=== PATIENT | female | born 1970 | race Hispanic/Latino ===

== ENCOUNTER 2016-09-13 10:40 | Emergency (ER) | payer MEDICARE ==
[2016-09-13 10:52] VITALS: BMI 45.4
[2016-09-13 10:53] VITALS: RESP 20
[2016-09-13 11:26] LABS: HCG,QUALITATIVE URINE NEGATIVE (NEGATIVE)
[2016-09-13 11:45] LABS: SQUAMOUS EPITHIAL 12 /hpf (0-5); URINE BACTERIA RARE (<OCC); URINE BILIRUBIN NEGATIVE (NEGATIVE); URINE BLOOD 3+ (NEGATIVE); URINE CLARITY Clear (Clear); URINE COLOR Yellow (YELLOW); URINE GLUCOSE (UA) 3+ mg/dL (Normal); URINE LEUKOCYTE ESTERASE NEG Leu/uL (Negative); URINE NITRATE NEGATIVE (NEGATIVE); URINE PROTEIN 1+ mg/dL (NEGATIVE); URINE UROBILINOGEN NORMAL mg/dL (0.2-1.0)
--- NOTE | 2016-09-13 11:56 | C.PDOC ---
History Of Present Illness Patient is a 45 y/o female, whose past medical history includes diabetes, presents to the emergency department for evaluation of vaginal spotting for the last few days. Patient reports having similar spotting when she was few years ago. Patient is requesting test. Denies being seen by OBGYN. States her period normally lasts for 7 days. Otherwise, denies any nausea , vomiting, abdominal pain, vaginal pain or discharge, urinary symptoms. Time Seen by Provider: 09/13/16 11:04 Chief Complaint (Nursing): Female Genitourinary History Per: Patient History/Exam Limitations: no limitations Onset/Duration Of Symptoms: Gradual Current Symptoms Are (Timing): Still Present Severity: None Pain Scale Rating Of: 0 Associated Symptoms: denies: Fever, Chills, Nausea, Vomiting, Diarrhea, Loss Of Appetite, Back Pain, Chest Pain, Constipation, Urinary Symptoms Alleviating Factors: None Recent travel outside of the [place]: No Additional History Per: Patient Past Medical History Reviewed: Historical Data, Nursing Documentation, Vital Signs Vital Signs: Last Vital Signs Temp 98.2 F 09/13/16 12:16 Pulse 78 09/13/16 12:16 Resp 20 09/13/16 12:16 BP 128/84 09/13/16 12:16 Pulse Ox 97 09/13/16 12:16 - Medical History PMH: Asthma, Bronchitis, Diabetes, Gastritis, HTN Denies: Chronic Kidney Disease Surgical History: Endoscopy, Family History: States: Unknown Family Hx - Social History Hx Tobacco Use: Yes (heavy smoker) Hx Alcohol Use: No Hx Substance Use: No - Immunization History Hx Tetanus Toxoid Vaccination: Yes Hx Influenza Vaccination: Yes Hx Pneumococcal Vaccination: Yes Review Of Systems Except As Marked, All Systems Reviewed And Found Negative. Constitutional: Negative for: Fever, Chills Gastrointestinal: Negative for: Nausea, Vomiting, Abdominal Pain Genitourinary: Positive for: Other (vaginal spotting). Negative for: Dysuria, Frequency, Hematuria, Pelvic Pain Musculoskeletal: Negative for: Back Pain Physical Exam - Physical Exam Appears: Non-toxic, No Acute Distress Skin: Normal Color, Warm, Dry Head: Atraumatic, Normacephalic Eye(s): bilateral: Normal Inspection Neck: Normal ROM, Supple Chest: Symmetrical Cardiovascular: Rhythm Regular, No Murmur Respiratory: Normal Breath Sounds, No Rales, No Rhonchi, No Wheezing Gastrointestinal/Abdominal: Bowel Sounds (active), Soft, No Tenderness, No Distention, No Guarding Extremity: Bilateral: Atraumatic, Normal ROM Neurological/Psych: Oriented x3, Normal Speech Gait: Steady ED Course And Treatment O2 Sat by Pulse Oximetry: 98 (on RA) Pulse Ox Interpretation: Normal Progress Note: Urinalysis ordered and reviwed. UA was negative for preg or UTI. On reassessment, patient is resting comfortably in bed, no acute distress. No other complaints at this time. Patient is being discharged home with instructions to follow up with PMD or steamboat pilot Disposition - Disposition [facility] Disposition: HOME/ ROUTINE Disposition Time: 12:00 Condition: STABLE Additional Instructions: Your urine test was negative for follow up with your credit collector Instructions: Dysmenorrhea (ED) - POA Present On Arrival: None - Clinical Impression Clinical Impression: Dysfunctional uterine bleeding - PA / VP [employer] / Resident Statement MD/DO has reviewed & agrees with the documentation as recorded. - Scribe Statement The provider has reviewed the documentation as recorded by the Fidelina Ramirez All medical record entries made by the Fidelina were at my direction and personally dictated by me. I have reviewed the chart and agree that the record accurately reflects my personal performance of the history, physical exam, medical decision making, and the department course for this patient. I have also personally directed, reviewed, and agree with the discharge instructions and disposition.
[2016-09-13 12:17] VITALS: BP 128/84; PULSE 78; TEMP 98.2
[2016-09-13 13:21] VITALS: O2SAT 98
== END 2016-09-13 12:17 | disposition home or self-care (01) ==
LOC: C.ER 10:40
DX: N93.8 Other specified abnormal uterine and vaginal bleeding (principal)

== ENCOUNTER 2016-10-02 17:51 | Emergency (ER) | payer MEDICARE ==
[2016-10-02 17:51] VITALS: BMI 45.4
[2016-10-02 18:10] VITALS: RESP 18; TEMP 98.2
[2016-10-02] MEDS ORDERED: Tmp-Smz 800 mg-160 mg DS Tab PO STA (19:03)
[2016-10-02] MEDS ORDERED: Bacitracin 500 Units/gm Oint Foilpak UD TOP ONE (19:26)
[2016-10-02] MEDS ORDERED: Bacitracin 500 Units/gm Oint Foilpak UD ONE (19:28)
[2016-10-02] MEDS ORDERED: Tmp-Smz 800 mg-160 mg DS Tab ONE (19:29)
[2016-10-02 19:52] VITALS: BP 135/85; PULSE 75; O2SAT 97
--- NOTE | 2016-10-02 19:52 | C.PDOC ---
History Of Present Illness 10/02/2016 Ruddy Butler is a 45 year old female, who presents to the emergency department complaining of redness and pain that developed in her lower abdomen around her site over the last two days. Patient reports today she was heavy lifting which made her symptoms worse. Patient denies chest pain, shortness of breath, headache, fever, chills, cough, nausea, vomiting, diarrhea , changes in bowel habits, dysuria, hematuria, frequency, flank pain, or vaginal discharge. Time Seen by Provider: 10/02/16 18:26 Chief Complaint (Nursing): Abnormal Skin Integrity History Per: Patient History/Exam Limitations: no limitations Onset/Duration Of Symptoms: Days (2 days) Current Symptoms Are (Timing): Still Present Location Of Injury: Right: Abdomen (lower region pain), Left: Abdomen Quality Of Symptoms: Other (redness) Severity: None Past Medical History Reviewed: Historical Data, Nursing Documentation, Vital Signs Vital Signs: Last Vital Signs Temp 98.2 F 10/02/16 19:51 Pulse 75 10/02/16 19:51 Resp 18 10/02/16 19:51 BP 135/85 10/02/16 19:51 Pulse Ox 97 10/02/16 19:57 - Medical History PMH: Asthma, Bronchitis, Diabetes, Gastritis, HTN Denies: Chronic Kidney Disease Surgical History: Endoscopy, Family History: States: Unknown Family Hx - Social History Hx Tobacco Use: Yes (heavy smoker) Hx Alcohol Use: No Hx Substance Use: No - Immunization History Hx Tetanus Toxoid Vaccination: Yes Hx Influenza Vaccination: Yes Hx Pneumococcal Vaccination: Yes Review Of Systems Except As Marked, All Systems Reviewed And Found Negative. Constitutional: Negative for: Fever Cardiovascular: Negative for: Chest Pain Respiratory: Negative for: Shortness of Breath Gastrointestinal: Positive for: Abdominal Pain (lower abdominal pain and redness ) Genitourinary: Negative for: Dysuria Neurological: Negative for: Dizziness Physical Exam - Physical Exam Appears: Well, Non-toxic, No Acute Distress Skin: Normal Color, Warm, Dry Head: Atraumatic, Normacephalic Eye(s): bilateral: Normal Inspection, PERRL, EOMI Nose: Normal Throat: Normal Neck: Normal Cardiovascular: Rhythm Regular Respiratory: Normal Breath Sounds Gastrointestinal/Abdominal: Normal Exam, Tenderness (mild erythema and tenderness on lower abdomen along incision site.) Back: Normal Inspection Extremity: Normal ROM ED Course And Treatment O2 Sat by Pulse Oximetry: 97 (room air) Pulse Ox Interpretation: Normal Medical Decision Making Medical Decision Making: Plan: -- Bacitracin, Keflex, Motrin, and Bactrim Progress Notes: Indicative of cellulitis. Patient reports incision is from 6 years ago. There are no open wounds and will treat for cellulitis. Discussed results and plan with patient who expresses understanding. All questions answered and there is agreement with the plan to discharge home with instructions. Patient stable for discharge. Advised to return if symptoms persist or worsen. Disposition - Disposition Referrals: Hira Hackett MD [Staff Provider] - Disposition: HOME/ ROUTINE Disposition Time: 19:48 Condition: GOOD Additional Instructions: Follow up with the medical doctor within 1-2 days. Return if worsened. Prescriptions: Cephalexin [Keflex] 500 mg PO BID #14 capsule Nystatin 1 pow TOP TID #30 gm Sulfamethoxazole/Trimethoprim [Bactrim DS 800 mg-160 mg] 1 tab PO BID #14 tab Instructions: Cellulitis (ED) Forms: [facility] (Brazilian) - Clinical Impression Clinical Impression: Cellulitis - Scribe Statement The provider has reviewed the documentation as recorded by the Scribe 10/02/2016 Scribe Attestation: Elyssa Lau MD Scribe Attestation: All medical record entries made by the Scribe were at my direction and personally dictated by me. I have reviewed the chart and agree that the record accurately reflects my personal performance of the history, physical exam, medical decision making, and the department course for this patient. I have also personally directed, reviewed, and agree with the discharge instructions and disposition.
== END 2016-10-02 20:01 | disposition home or self-care (01) ==
LOC: C.ER 17:51
DX: L03.311 Cellulitis of abdominal wall (principal)

== ENCOUNTER 2017-11-09 11:41 | Emergency (ER) | payer MEDICARE ==
[2017-11-09 11:42] VITALS: BMI 45.4
--- NOTE | 2017-11-09 12:30 | C.PDOC ---
History Of Present Illness 47 year old female with PMHx of migraines presents to the ED complaining of headache for 3 days and abdominal pain since last night. Patient reports headache is intermittent and is associated with mild photophobia. She denies any visual changes, vomiting, diarrhea, dysuria, hematuria or any other symptoms. Last normal bowel movement was yesterday. Time Seen by Provider: 11/09/17 12:07 Chief Complaint (Nursing): Headache History Per: Patient History/Exam Limitations: no limitations Onset/Duration Of Symptoms: Days (1) Current Symptoms Are (Timing): Still Present Past Medical History Reviewed: Historical Data, Nursing Documentation, Vital Signs Vital Signs: Last Vital Signs Temp 98.8 F 11/09/17 15:02 Pulse 62 11/09/17 15:02 Resp 18 11/09/17 15:02 BP 121/62 11/09/17 15:02 Pulse Ox 98 11/09/17 17:41 - Medical History PMH: Asthma, Bronchitis, Diabetes, Gastritis, HTN Denies: Chronic Kidney Disease Surgical History: Endoscopy, Family History: States: No Known Family Hx - Social History Hx Tobacco Use: Yes (heavy smoker) Hx Alcohol Use: No Hx Substance Use: No - Immunization History Hx Tetanus Toxoid Vaccination: Yes Hx Influenza Vaccination: Yes Hx Pneumococcal Vaccination: Yes Review Of Systems Except As Marked, All Systems Reviewed And Found Negative. Constitutional: Negative for: Fever, Chills Respiratory: Negative for: Shortness of Breath Gastrointestinal: Positive for: Nausea, Abdominal Pain. Negative for: Vomiting , Diarrhea Genitourinary: Negative for: Dysuria, Hematuria Neurological: Positive for: Headache Physical Exam - Physical Exam Appears: Non-toxic, No Acute Distress Skin: Normal Color, Warm, Dry, No Rash Head: Atraumatic, Normacephalic, Other (No temporal artery tenderness. No sinus tenderness) Eye(s): bilateral: Normal Inspection, PERRL, EOMI Ear(s): Bilateral: Normal Nose: Normal Oral Mucosa: Moist Throat: No Erythema, No Exudate Neck: Normal ROM, Supple Chest: Symmetrical Cardiovascular: Rhythm Regular, No Friction Rub, No Murmur Respiratory: Normal Breath Sounds, No Rales, No Rhonchi, No Wheezing Gastrointestinal/Abdominal: Bowel Sounds (active), Soft, Tenderness (midly diffused tenderness ), Distention (Mildly distended ), No Guarding, No Rebound Back: Normal Inspection, No CVA Tenderness Extremity: Normal ROM, No Swelling Extremity: Bilateral: Atraumatic Neurological/Psych: Oriented x3, Normal Speech, Normal Motor Gait: Steady ED Course And Treatment - Laboratory Results Result Diagrams: 11/09/17 13:07 11/09/17 13:07 O2 Sat by Pulse Oximetry: 98 (RA) Pulse Ox Interpretation: Normal Medical Decision Making Medical Decision Making: Orders: - Labwork - Bloodwork - Benadryl 25mg IVP - Reglan 10mg IVP - Fluids - Toradol 30mg IVP - UA On re-exam, the patient reports improvement of symptoms. Lungs are CTA, heart is RRR, Abdomen is soft, non-tender and the patient is tolerating PO well. Pt is ambulatory in the ED with steady gait. Follow up with the medical doctor within 1-2 days. return if worsened. Disposition - Disposition Referrals: Hira Hackett MD [Staff Provider] - Disposition: HOME/ ROUTINE Disposition Time: 17:38 Condition: GOOD Additional Instructions: Follow up with the medical doctor within 1-2 days without fail. Return if worsened. Prescriptions: Acetaminophen/Butalbital/Caf [Fioricet] 1 tab PO TID PRN #20 tab PRN Reason: Headache Famotidine [Pepcid] 20 mg PO BID #20 tab Ibuprofen [Motrin] 1 tab PO TID PRN #30 tab PRN Reason: Pain Instructions: Migraine Headache (DC), Stomach Ache and Stomach Upset Forms: [facility] (Ghanaian) - Clinical Impression Clinical Impression: Migraine, Abdominal pain - PA / BELT CUTTER / Resident Statement MD/DO has reviewed & agrees with the documentation as recorded. - Scribe Statement The provider has reviewed the documentation as recorded by the Scribe Hansa Harvey All medical record entries made by the Scribe were at my direction and personally dictated by me. I have reviewed the chart and agree that the record accurately reflects my personal performance of the history, physical exam, medical decision making, and the department course for this patient. I have also personally directed, reviewed, and agree with the discharge instructions and disposition.
[2017-11-09] MEDS ORDERED: DiphenhydrAMINE 50 mg/ml Inj IVP STA (12:33)
[2017-11-09] MEDS ORDERED: Sodium Chloride 0.9% 1,000 ML IV ONE (12:35)
[2017-11-09 13:14] LABS: BASO # 0.1 K/uL (0.0-0.2); BASO % 1.3 % (0.0-2.0); EOS # 0.4 K/uL (0.0-0.7); EOS % 3.9 % (0.0-4.0); HEMOGLOBIN 14.5 g/dL (11.0-16.0); LYMPH # 1.8 K/uL (1.0-4.3); LYMPH % 17.7 % (20.0-40.0); MEAN CORPUSCULAR HEMOGLOBIN 32.1 pg (27.0-31.0); MEAN CORPUSCULAR HGB CONC 34.9 g/dL (33.0-37.0); MEAN PLATELET VOLUME 9.3 fL (7.2-11.7); MONO # 0.6 K/uL (0.0-0.8); MONO % 5.7 % (0.0-10.0); NEUT # 7.3 K/uL (1.8-7.0); NEUT % 71.4 % (50.0-75.0); NRBC % 0.1 % (0.0-2.0); RBC 4.51 Mil/uL (3.80-5.20); RED CELL DISTRIBUTION WIDTH 13.1 % (11.5-14.5); WHITE BLOOD COUNT 10.3 K/uL (4.8-10.8)
[2017-11-09 13:17] LABS: SQUAMOUS EPITHIAL < 1 /hpf (0-5); URINE BACTERIA RARE (<OCC); URINE BILIRUBIN NEGATIVE (NEGATIVE); URINE BLOOD NEGATIVE (NEGATIVE); URINE CLARITY Clear (Clear); URINE COLOR Yellow (YELLOW); URINE GLUCOSE (UA) NORMAL (Normal); URINE LEUKOCYTE ESTERASE NEG Leu/uL (Negative); URINE PROTEIN NEGATIVE (NEGATIVE); URINE UROBILINOGEN NORMAL mg/dL (0.2-1.0)
[2017-11-09 13:35] LABS: ALB/GLOB RATIO 1.3 (1.0-2.1); ALBUMIN 4.3 g/dL (3.5-5.0); ALT/SGPT 27 U/L (9-52); AST/SGOT 25 U/L (14-36); BLOOD UREA NITROGEN 9 mg/dL (7-17); CALCIUM 9.6 mg/dl (8.6-10.4); GFR NON-AFRICAN AMERICAN > 60; LIPASE 222 U/L (23-300)
[2017-11-09 14:27] VITALS: RESP 18
[2017-11-09] MEDS ORDERED: Sodium Chloride 0.9% 1,000 ML ONE (14:35)
[2017-11-09] MEDS ORDERED: DiphenhydrAMINE 50 mg/ml Inj ONE (14:36)
[2017-11-09 15:02] VITALS: BP 121/62; PULSE 62; TEMP 98.8
--- NOTE | 2017-11-09 16:46 | RAD ---
Date of service: 11/09/2017 PROCEDURE: Radiographs of the chest and abdomen (obstructive series) HISTORY: abd pain, nausea, COMPARISON: No prior. TECHNIQUE: AP radiograph of the chest, with upright and supine radiographs of the abdomen. FINDINGS: CHEST: Lungs: Clear. Cardiovascular: Normal size heart. No pulmonary vascular congestion. Pleura: No pleural fluid. No pneumothorax. Other findings: None. ABDOMEN AND PELVIS: Bowel: Unremarkable bowel gas pattern. No evidence of mechanical obstruction. Free air: None. Bones lumbar spine osteoarthrosis Bilateral SI joint sclerotic arthrosis. Other findings: None. IMPRESSION: No pulmonary infiltrate. . No evidence of mechanical bowel obstruction. Other findings as above.
--- NOTE | 2017-11-09 17:28 | US ---
Date of service: 11/09/2017 HISTORY: RUQ abd pain COMPARISON: None available TECHNIQUE: Sonographic evaluation of the right upper quadrant of the abdomen. FINDINGS: LIVER: Measures 21.6 cm in length. Echogenic liver may be seen in setting of hepatic parenchymal disease or fatty infiltration. No focal hepatic mass identified. The main portal vein appears patent with normal directional flow. No intrahepatic bile duct dilatation. GALLBLADDER: No gallstones. No gallbladder wall thickening or pericholecystic edema. Negative sonographic Engel's sign as assessed by the poultry packer. COMMON BILE DUCT: Measures 4 mm. PANCREAS: Not well-visualized. RIGHT KIDNEY: Measures 11.1 x 4.3 x 5.4 cm. No obstructing calculus or hydronephrosis identified. AORTA: Limited visualization appears grossly unremarkable. IVC: Limited visualization appears grossly unremarkable. OTHER FINDINGS: None . IMPRESSION: Hepatomegaly. Echogenic liver may be seen in setting of hepatic parenchymal disease or fatty infiltration.
[2017-11-09] MEDS ORDERED: Apap-Butalbital-Caffeine 325-50-40mg Tab PO STA (17:37)
[2017-11-09 17:41] VITALS: O2SAT 98
[2017-11-09] MEDS ORDERED: Apap-Butalbital-Caffeine 325-50-40mg Tab ONE (17:59)
== END 2017-11-09 18:01 | disposition home or self-care (01) ==
LOC: C.ER 11:41
DX: G43.909 Migraine, unspecified, not intractable, without status migrainosus (principal); R10.9 Unspecified abdominal pain; E11.9 Type 2 diabetes mellitus without complications; I10 Essential (primary) hypertension; F17.200 Nicotine dependence, unspecified, uncomplicated
CPT/HCPCS: 74022; 76705; 80053; 81001; 83690; 84703; 85025; 96374; 96375; 99285; J1200; J1885; J2765; J7030

== ENCOUNTER 2017-12-13 11:38 | Emergency (ER) | payer MEDICARE ==
[2017-12-13 11:39] VITALS: BMI 45.4
[2017-12-13 11:53] VITALS: O2SAT 99
[2017-12-13 13:25] LABS: BASO % 0.5 % (0.0-2.0); EOS # 0.4 K/uL (0.0-0.7); EOS % 5.2 % (0.0-4.0); HEMOGLOBIN 14.6 g/dL (11.0-16.0); LYMPH # 2.2 K/uL (1.0-4.3); LYMPH % 26.3 % (20.0-40.0); MEAN CELL VOLUME 92.2 fL (81.0-99.0); MEAN CORPUSCULAR HEMOGLOBIN 31.3 pg (27.0-31.0); MEAN CORPUSCULAR HGB CONC 33.9 g/dL (33.0-37.0); MEAN PLATELET VOLUME 8.9 fL (7.2-11.7); MONO # 0.6 K/uL (0.0-0.8); MONO % 6.7 % (0.0-10.0); NEUT # 5.2 K/uL (1.8-7.0); NEUT % 61.3 % (50.0-75.0); RBC 4.67 Mil/uL (3.80-5.20); RED CELL DISTRIBUTION WIDTH 13.1 % (11.5-14.5); WHITE BLOOD COUNT 8.5 K/uL (4.8-10.8)
[2017-12-13 13:28] LABS: ALB/GLOB RATIO 1.2 (1.0-2.1); ALBUMIN 4.1 g/dL (3.5-5.0); ALT/SGPT 24 U/L (9-52); AST/SGOT 22 U/L (14-36); BLOOD UREA NITROGEN 10 mg/dL (7-17); CALCIUM 9.5 mg/dl (8.6-10.4); GFR NON-AFRICAN AMERICAN > 60; LIPASE 327 U/L (23-300)
--- NOTE | 2017-12-13 13:48 | C.PDOC ---
History Of Present Illness Patient reports several day history of abdominal pain, states that "it is hard as a rock and keeps growing". Reports that LMP was in September and one week ago she had a positive home test. Denies any other symptoms such as fever, nausea, vomiting, vaginal bleeding/discharge. Time Seen by Provider: 12/13/17 12:12 Chief Complaint (Nursing): Abdominal Pain Past Medical History Vital Signs: Last Vital Signs Temp 98.6 F 12/13/17 11:49 Pulse 75 12/13/17 11:49 Resp 18 12/13/17 11:49 BP 169/80 H 12/13/17 11:49 Pulse Ox 99 12/13/17 11:49 - Medical History PMH: Asthma, Bronchitis, Diabetes, Gastritis, HTN Denies: Chronic Kidney Disease Surgical History: Endoscopy, Family History: States: Unknown Family Hx - Social History Hx Tobacco Use: Yes (heavy smoker) Hx Alcohol Use: No Hx Substance Use: No - Immunization History Hx Tetanus Toxoid Vaccination: No Hx Influenza Vaccination: No Hx Pneumococcal Vaccination: No Review Of Systems Except As Marked, All Systems Reviewed And Found Negative. Constitutional: Negative for: Fever, Chills Cardiovascular: Negative for: Chest Pain Respiratory: Negative for: Cough, Shortness of Breath, SOB with Excertion Gastrointestinal: Positive for: Abdominal Pain. Negative for: Nausea, Vomiting, Diarrhea Neurological: Negative for: Weakness, Numbness Physical Exam - Physical Exam Appears: Well, Non-toxic, No Acute Distress Skin: Normal Color, Warm, Dry Head: Atraumatic Cardiovascular: Rhythm Regular Respiratory: Normal Breath Sounds Gastrointestinal/Abdominal: Normal Exam, Soft, No Tenderness, No Mass, No Distention, No Guarding, No Rebound Neurological/Psych: Oriented x3, Normal Speech ED Course And Treatment - Laboratory Results Result Diagrams: 12/13/17 13:12 12/13/17 13:12 Urine POC: Negative O2 Sat by Pulse Oximetry: 99 Medical Decision Making Medical Decision Making: UPT done and was negative. Confirmatory serum beta quantitative done and was also negative. Labs unremarkable except for slightly elevated lipase. Patient advised to follow up with PMD for further evaluation. 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 Disposition - Disposition Disposition: HOME/ ROUTINE Disposition Time: 13:48 Condition: GOOD Additional Instructions: IZABELA ANGELES, thank you for letting us take care of you today. Your provider was Shahana Chou MD and you were treated for /ABD PAIN. The emergency medical care you received today was directed at your acute symptoms. If you were prescribed any medication, please fill it and take as directed. It may take several days for your symptoms to resolve. Return to the Emergency Department if your symptoms worsen, do not improve, or if you have any other problems. Please contact your doctor or call one of the physicians/clinics you have been referred to that are listed on the Patient Visit Information form that is included in your discharge packet. Bring any paperwork you were given at discharge with you along with any medications you are taking to your follow up visit. Our treatment cannot replace ongoing medical care by a primary care provider outside of the emergency department. Thank you for allowing the [facility] team to be part of your care today. If you had an X-Ray or CT scan: A Radiologist will review the ED reading if any change in treatment is needed we will contact you. If you had a blood, urine, or wound culture: It will take several days for the results, if any change in treatment is needed we will contact you. If you had an STI test: It will take 48 hours for the results. Please call after 1 week if you have not heard back. Instructions: Acute Abdomen (Belly Pain), Adult (DC) Forms: [employer] (Chilean) - Clinical Impression Clinical Impression: Abdominal pain
[2017-12-13 13:58] VITALS: BP 149/78; PULSE 74; RESP 16; TEMP 98.5
== END 2017-12-13 13:57 | disposition home or self-care (01) ==
LOC: C.ER 11:38
DX: R10.9 Unspecified abdominal pain (principal)

== ENCOUNTER 2018-04-09 09:36 | Inpatient (IN) | payer MEDICARE ==
[2018-04-09 09:48] VITALS: BMI 46.0
[2018-04-09] MEDS ORDERED: Piperacillin/Tazobact 3.375 GM in Sodium Chloride 100 ML IVPB STA (10:49)
[2018-04-09] MEDS ORDERED: Vancomycin 1 GM 1 GM/250 ML BAG IVPB STA (10:50)
[2018-04-09 10:56] LABS: HCG,QUALITATIVE URINE NEGATIVE (NEGATIVE)
[2018-04-09 11:16] LABS: SQUAMOUS EPITHIAL 8 /hpf (0-5); URINE BACTERIA RARE (<OCC); URINE BILIRUBIN NEGATIVE (NEGATIVE); URINE BLOOD NEGATIVE (NEGATIVE); URINE CLARITY Hazy (Clear); URINE COLOR Yellow (YELLOW); URINE GLUCOSE (UA) NORMAL (Normal); URINE LEUKOCYTE ESTERASE NEG Leu/uL (Negative); URINE PROTEIN NEGATIVE (NEGATIVE); URINE UROBILINOGEN NORMAL mg/dL (0.2-1.0)
[2018-04-09] MEDS ORDERED: Piperacillin/Tazobact 3.375 gm 100 ML IVPB ONE (11:16)
[2018-04-09] MEDS ORDERED: Vancomycin 1 GM 1 GM/250 ML BAG IVPB ONE (11:16)
[2018-04-09 11:31] LABS: BASO % 0.4 % (0.0-2.0); EOS # 0.3 K/uL (0.0-0.7); EOS % 2.2 % (0.0-4.0); HEMOGLOBIN 14.1 g/dL (11.0-16.0); LYMPH # 1.2 K/uL (1.0-4.3); LYMPH % 10.4 % (20.0-40.0); MEAN CELL VOLUME 92.6 fL (81.0-99.0); MEAN CORPUSCULAR HEMOGLOBIN 31.9 pg (27.0-31.0); MEAN CORPUSCULAR HGB CONC 34.4 g/dL (33.0-37.0); MONO # 0.6 K/uL (0.0-0.8); MONO % 5.3 % (0.0-10.0); NEUT # 9.6 K/uL (1.8-7.0); NEUT % 81.7 % (50.0-75.0); RBC 4.44 Mil/uL (3.80-5.20); RED CELL DISTRIBUTION WIDTH 13.2 % (11.5-14.5); WHITE BLOOD COUNT 11.8 K/uL (4.8-10.8)
[2018-04-09 11:32] LABS: INR 1.2; PROTHROMBIN TIME 12.9 SECONDS (9.7-12.2)
[2018-04-09 11:38] LABS: ALB/GLOB RATIO 1.2 (1.0-2.1); ALBUMIN 4.2 g/dL (3.5-5.0); AST/SGOT 17 U/L (14-36); BLOOD UREA NITROGEN 11 mg/dL (7-17); CALCIUM 9.2 mg/dl (8.6-10.4); GFR NON-AFRICAN AMERICAN > 60
--- NOTE | 2018-04-09 11:46 | RAD ---
HISTORY: pre op COMPARISON: Chest x-ray portion of obstructive series performed 11/09/17 TECHNIQUE: Chest PA and lateral FINDINGS: Examination limited by habitus. LUNGS: No focal consolidation. Please note that chest x-ray has limited sensitivity for the detection of pulmonary masses. PLEURA: No significant pleural effusion identified. No definite pneumothorax . CARDIOVASCULAR: The cardiomediastinal silhouette appears within normal limits of size. No atherosclerotic calcification present. OSSEOUS STRUCTURES: No acute osseous abnormality identified. VISUALIZED UPPER ABDOMEN: Unremarkable. OTHER FINDINGS: None. IMPRESSION: No focal consolidation.
[2018-04-09 11:50] LABS: ALT/SGPT < 6 U/L (9-52)
--- NOTE | 2018-04-09 12:12 | C.PDOC ---
History Of Present Illness 47 year old female resents to ED with complaint of cellulitis and abscess on the right breast for the last week, taking po Augmentin with no improvement. . Patient is obese and has diabetes and hypertension. Patient denies any numbness or weakness. Time Seen by Provider: 04/09/18 10:31 Chief Complaint (Nursing): Abnormal Skin Integrity History Per: Patient History/Exam Limitations: no limitations Onset/Duration Of Symptoms: Hrs Current Symptoms Are (Timing): Still Present Location Of Injury: Right: Chest (cellulitis and abscess on the right breast) Past Medical History Reviewed: Historical Data, Nursing Documentation, Vital Signs Vital Signs: Last Vital Signs Temp 98.3 F 04/09/18 09:48 Pulse 95 H 04/09/18 09:48 Resp 18 04/09/18 09:48 BP 139/97 H 04/09/18 09:48 Pulse Ox 97 04/09/18 09:48 - Medical History PMH: Asthma, Bronchitis, Diabetes, Gastritis Denies: HTN (pt denies), Chronic Kidney Disease Surgical History: Endoscopy, Family History: States: Unknown Family Hx - Social History Hx Tobacco Use: Yes (heavy smoker) Hx Alcohol Use: No Hx Substance Use: No - Immunization History Hx Tetanus Toxoid Vaccination: No Hx Influenza Vaccination: No Hx Pneumococcal Vaccination: No Review Of Systems Constitutional: Negative for: Fever, Chills, Weakness Cardiovascular: Negative for: Chest Pain, Palpitations Gastrointestinal: Negative for: Nausea, Vomiting Skin: Positive for: Other (cellulitis and abcess on the right breast) Neurological: Negative for: Weakness, Numbness, Dizziness Physical Exam - Physical Exam Appears: Well, Non-toxic, No Acute Distress, Other (obese) Skin: Other (right breast firm, hot on distal surface, black scabs with fluctuance underneath the distal aspect of the breast below the nipple, no drainage) Head: Atraumatic, Normacephalic Neck: Normal ROM, Supple Chest: Symmetrical, No Deformity, Other (left breast appears normal, right breast enlarged. erythematous and hot. mutiple blackened scabbed areas from 3 oclock to 9 oclock position with fluctuance, no active discharge. ) Cardiovascular: Rhythm Regular, No Murmur Respiratory: No Decreased Breath Sounds, No Accessory Muscle Use, No Rales, No Rhonchi, No Wheezing Gastrointestinal/Abdominal: Bowel Sounds, Soft, No Tenderness, No Distention, No Guarding, No Rebound Extremity: Capillary Refill (<2 seconds) Extremity: Bilateral: Atraumatic, Normal Color And Temperature Pulses: Left Radial: Normal, Right Radial: Normal Neurological/Psych: Oriented x3, Normal Speech, Normal Cognition ED Course And Treatment - Laboratory Results Result Diagrams: 04/09/18 11:16 04/09/18 11:16 Lab Results: PT 12.9 SECONDS (9.7-12.2) H 04/09/18 11:16 INR 1.2 04/09/18 11:16 APTT 30 SECONDS (21-34) 04/09/18 11:16 Total Bilirubin 0.3 mg/dL (0.2-1.3) 04/09/18 11:16 AST 17 U/L (14-36) 04/09/18 11:16 ALT < 6 U/L (9-52) L D 04/09/18 11:16 Alkaline Phosphatase 93 U/L (38-126) 04/09/18 11:16 Total Protein 7.5 g/dL (6.3-8.3) 04/09/18 11:16 Albumin 4.2 g/dL (3.5-5.0) 04/09/18 11:16 Globulin 3.3 gm/dL (2.2-3.9) 04/09/18 11:16 Albumin/Globulin Ratio 1.2 (1.0-2.1) 04/09/18 11:16 Urine Color Yellow (YELLOW) 04/09/18 10:47 Urine Clarity Hazy (Clear) 04/09/18 10:47 Urine pH 5.0 (5.0-8.0) 04/09/18 10:47 Ur Specific [place] 1.015 (1.003-1.030) 04/09/18 10:47 Urine Protein Negative mg/dL (NEGATIVE) 04/09/18 10:47 Urine Glucose (UA) Normal mg/dL (Normal) 04/09/18 10:47 Urine Ketones Negative mg/dL (NEGATIVE) 04/09/18 10:47 Urine Blood Negative (NEGATIVE) 04/09/18 10:47 Urine Nitrate Negative (NEGATIVE) 04/09/18 10:47 Urine Bilirubin Negative (NEGATIVE) 04/09/18 10:47 Urine Urobilinogen Normal mg/dL (0.2-1.0) 04/09/18 10:47 Ur Leukocyte Esterase Neg Vaishnavi/uL (Negative) 04/09/18 10:47 Urine WBC (Auto) 1 /hpf (0-5) 04/09/18 10:47 Urine RBC (Auto) 1 /hpf (0-3) 04/09/18 10:47 Ur Squamous Epith Cells 8 /hpf (0-5) H 04/09/18 10:47 Urine Bacteria Rare (<OCC) 04/09/18 10:47 Urine HCG, Qual Negative (NEGATIVE) 04/09/18 10:47 Urine HCG, Qual Negative (NEGATIVE) 04/09/18 10:47 ECG: Interpreted By Me, Viewed By Me ECG Rhythm: Sinus Rhythm ECG Interpretation: Abnormal Interpretation Of ECG: left axis deviation. sinus rhythm normal. Abnormal ECG O2 Sat by Pulse Oximetry: 97 (RA) - Other Rad CXR X-Ray: Interpreted by Me, Viewed By Me Interpretation: Accession No. : [id number]. Patient Name / ID : BRIDGETTE GURROLA / [id number]. Exam Date : 04/09/2018 10:55:16 ( Approved ). Study Comment : Sex / Age : F / 47Y. Creator : Dorys Casas MD. Dictator : Dorys Casas MD. [employer] Developer : Raw Sampler : Dorys Casas MD. Approver2 : Report Date : 04/09/2018 11:42:47. My Comment : . HISTORY: pre op. COMPARISON: Chest x-ray portion of obstructive series performed 11/09/17. TECHNIQUE: Chest PA and lateral. FINDINGS: Examination limited by habitus. LUNGS: No focal consolidation. Please note that chest x-ray has limited sensitivity for the detection of pulmonary masses. PLEURA: No significant pleural effusion identified. No definite pneumothorax . CARDIOVASCULAR: The cardiomediastinal silhouette appears within normal limits of size. No atherosclerotic calcification present. OSSEOUS STRUCTURES: No acute osseous abnormality identified. VISUALIZED UPPER ABDOMEN: Unremarkable. OTHER FINDINGS: None. IMPRESSION: No focal consolidation. Medical Decision Making Medical Decision Making: pt with breast cellulitis and abscess for or Plan: Labs ordered with urine culture and blood culture for patient. EKG and CXR orderd for patient. NaCl IV, Vancomycin IVPB, and Zosyn IVPB given to patient. Disposition Discussed With Dr.: Jabari Barros Doctor Will See Patient In The: Hospital - Disposition Disposition: HOSPITALIZED Disposition Time: 12:11 Condition: STABLE - Clinical Impression Clinical Impression: Cellulitis of right breast, Abscess of breast, right - PA / MACHINE SETTER SUPERVISOR / Resident Statement MD/DO has reviewed & agrees with the documentation as recorded. (Celi Haney) - Scribe Statement The provider has reviewed the documentation as recorded by the Scribe (Celi Haney) All medical record entries made by the Scribe were at my direction and personally dictated by me. I have reviewed the chart and agree that the record accurately reflects my personal performance of the history, physical exam, medical decision making, and the department course for this patient. I have also personally directed, reviewed, and agree with the discharge instructions and disposition.
[2018-04-09] MEDS ORDERED: Sodium Chloride 0.9% 250 ML IV ONE (12:33)
[2018-04-09] MEDS: Sodium Chloride 0.9% 1,000 ML IV SCH (12:34)
[2018-04-09] MEDS ORDERED: Midazolam 2 MG/2 ML VIAL ONE (13:31)
[2018-04-09] MEDS ORDERED: Propofol 10 mg/ml Inj (20 ML) ONE (13:32)
[2018-04-09] MEDS ORDERED: HYDROmorphone 0.5 mg/0.5 ml ISec IVP PRN (14:05)
[2018-04-09] MEDS: Dextrose 5%/0.45% NS 1,000 ML IV SCH (17:32)
[2018-04-09] MEDS: Oxycodone/Acetaminophen 5/325 mg Tab PO PRN (20:16)
[2018-04-09] MEDS: Enoxaparin 30 mg Syringe SC SCH (21:43)
--- NOTE | 2018-04-10 00:25 | OP ---
PROCEDURE DATE: 04/09/2018 PREOPERATIVE DIAGNOSIS: Necrotizing soft tissue infection of right breast. POSTOPERATIVE DIAGNOSIS: Necrotizing soft tissue infection of right breast. PROCEDURE PERFORMED: Incision and drainage, radical debridement, necrotizing soft tissue infection of the right breast. SURGEON: Jabari Barros MD ANESTHESIA: General. ESTIMATED BLOOD LOSS: 15 mL. POSTOPERATIVE CONDITION: Stable. INDICATIONS FOR SURGERY: This is a 47-year-old female, seen in my office three days ago with a severe right breast abscess. Recommendation was made to admit the patient to the hospital and treat her on an urgent basis; however, she wanted to wait the weekend until Monday to do this. Instead, she was admitted today, found to have a necrotizing soft tissue infection in her breast. She is taken to the operating room now for debridement and drainage. GROSS FINDINGS: There was gangrenous skin overlying the anterior portion of the breast in the upper inner quadrant, also at the whole inferior quadrant. This was debrided and underlying it was a large abscess cavity containing about 50 mL of pus. DESCRIPTION OF PROCEDURE: The patient was taken to the operating room, general anesthesia was administered, and the right breast was prepped and draped. The overlying eschars were excised using an 11 blade. The underlying pus was drained and cultured. The necrotic tissue within the soft tissue space was radically debrided. Bleeding was controlled using a Bovie. The chest wall blood vessel was repaired. The wound was irrigated with copious amounts of saline solution. A partial flap closure was performed at the periphery. The central portion of the wound was packed open with saline gauze. The patient tolerated the procedure well and returned to recovery room in stable condition. Jabari Barros MD
[2018-04-10] MEDS: Enoxaparin 30 mg Syringe SC SCH ×2 (01:00→21:41)
[2018-04-10 07:25] LABS: BASO % 0.4 % (0.0-2.0); EOS # 0.2 K/uL (0.0-0.7); EOS % 2.8 % (0.0-4.0); HEMOGLOBIN 12.9 g/dL (11.0-16.0); LYMPH # 1.8 K/uL (1.0-4.3); LYMPH % 20.4 % (20.0-40.0); MEAN CELL VOLUME 92.7 fL (81.0-99.0); MEAN CORPUSCULAR HEMOGLOBIN 31.6 pg (27.0-31.0); MEAN CORPUSCULAR HGB CONC 34.1 g/dL (33.0-37.0); MEAN PLATELET VOLUME 8.8 fL (7.2-11.7); MONO # 0.5 K/uL (0.0-0.8); MONO % 5.9 % (0.0-10.0); NEUT # 6.1 K/uL (1.8-7.0); NEUT % 70.5 % (50.0-75.0); NRBC % 0.1 % (0.0-2.0); RBC 4.08 Mil/uL (3.80-5.20); RED CELL DISTRIBUTION WIDTH 13.1 % (11.5-14.5); WHITE BLOOD COUNT 8.7 K/uL (4.8-10.8)
[2018-04-10 07:33] LABS: BLOOD UREA NITROGEN 14 mg/dL (7-17); CALCIUM 8.6 mg/dl (8.6-10.4); GFR NON-AFRICAN AMERICAN > 60
[2018-04-10] MEDS: Sodium Chloride 0.9% 1,000 ML IV SCH ×2 (08:34→21:34)
[2018-04-10] MEDS ORDERED: Vancomycin 1 gm/D5W 200 ml 1 GM/200 ML BAG IVPB ONE (14:12)
[2018-04-10] MEDS ORDERED: Midazolam 2 MG/2 ML VIAL ONE (14:34)
[2018-04-10] MEDS ORDERED: Propofol 10 mg/ml Inj (20 ML) ONE ×3 (14:34→14:57)
[2018-04-10] MEDS: Vancomycin 1 gm/NS 200 ml 1 GM/200 ML BAG IVPB SCH (16:21)
[2018-04-10] MEDS: Piperacillin/Tazobact 3.375 GM in Sodium Chloride 100 ML IVPB SCH ×2 (16:30→21:34)
--- NOTE | 2018-04-10 17:26 | CP.PCM.CON ---
History of Present Illness - History of Present Illness History of Present Illness: 47 year old female resents to ED with complaint of cellulitis and abscess on the right breast for the last week Failed out pt rx sees dr chandrika MURILLO consulted for this - Medical History PMH: Asthma, Bronchitis, Diabetes, Gastritis Denies: HTN (pt denies), Chronic Kidney Disease Surgical History: Endoscopy, Review of Systems - Review of Systems All systems: reviewed and no additional remarkable complaints except - Constitutional Constitutional: As Per HPI - EENT Eyes: absent: As Per HPI, Blind Spots, Blurred Vision, Change in Vision, Decreased Night Vision, Diplopia, Discharge, Dry Eye, Exophthalmos, Floaters, Irritation, Itchy Eyes, Loss of Peripheral Vision, Pain, Photophobia, Requires Corrective Lenses, Sees Flashes, Spots in Vision, Tunnel Vision, Other Visual Disturbances, Loss of Vision, Other Ears: absent: As Per HPI, Decreased Hearing, Ear Discharge, Ear Pain, Tinnitus, Abnormal Hearing, Disequilibrium, Dizziness, Other Nose/Mouth/Throat: absent: As Per HPI, Epistaxis, Nasal Congestion, Nasal Discharge, Nasal Obstruction, Nasal Trauma, Nose Pain, Post Nasal Drip, Sinus Pain, Sinus Pressure, Bleeding Gums, Change in Voice, Dental Pain, Dry Mouth, Dysphagia, Halitosis, Hoarsness, Lip Swelling, Mouth Lesions, Mouth Pain, Odynophagia, Sore Throat, Throat Swelling, Tongue Swelling, Facial Pain, Neck Pain, Neck Mass, Other - Breasts Breasts: As Per HPI - Cardiovascular Cardiovascular: absent: As Per HPI, Acrocyanosis, Chest Pain, Chest Pain at Rest, Chest Pain with Activity, Claudication, Diaphoresis, Dyspnea, Dyspnea on Exertion, Edema, Irregular Heart Rhythm, Pain Radiating to Arm/Neck/Jaw, Leg Edema, Leg Ulcers, Lightheadedness, Orthopnea, Palpitations, Paroxysmal Nocturnal Dyspnea, Pedal Edema, Radiating Pain, Rapid Heart Rate, Slow Heart Rate, Syncope, Other - Respiratory Respiratory: Cough. absent: Hemoptysis - Gastrointestinal Gastrointestinal: absent: As Per HPI, Abdominal Pain, Belching, Bloating, Change in Bowel Habits, Change in Stool Character, Coffee Ground Emesis, Constipation, Cramping, Diarrhea, Dyspepsia, Dysphagia, Early Satiety, Excessive Flatus, Fecal Incontinence, Heartburn, Hematemesis, Hematochezia, Loose Stools, Melena, [place] sea, Odynophagia, Temesmus, Vomiting, Other - Genitourinary Genitourinary: absent: As Per HPI, Change in Urinary Stream, Difficulty Urinating, Dysuria, Flank Pain, Hematuria, Pyuria, Nocturia, Urinary Incontinence, Urinary Frequency, Urinary Hesitance, Urinary Urgency, Voiding Freq/Small Amts, Freq UTI, Hx Renal/Bladder Calculi, Hx /Renal Surgery, Bladder Distension, Other - Reproductive: Female Reproductive:Female: absent: As Per HPI, Amenorrhea, Amenorrhea/ Control, Currently Menstual, Cycle <21 Days, Cycle >35 Days, Cycle Variable, Menses 1-7 Days, Menses >/= 8 Days, Menses Variable, Cycle > 4 Weeks Between, No Menses for 6 Months, Heavy Menses, Light Menses, Normal Menses, Spotting Between Cycles, S/P Hysterectomy, Menopausal, Post Menopausal, Premenarche, Abnormal Vaginal Bleeding, Dysmenorrhea, Dyspareunia, Genital Lesions, Genital Pruritis, Pelvic Pain, Prolapse Symptoms, Sexual Dysfunction, Vaginal Discharge, Vaginal Dryness, Vaginal Odor, Vaginal Pruritis, Other - Menstruation Menstruation: absent: As Per HPI, Amenorrhea, Amenorrhea/ Control, Cur rently Menstual, Cycle <21 Days, Cycle >35 Days, Cycle Variable, Menses 1-7 Days, Menses >/= 8 Days, Menses Variable, Cycle > 4 Weeks Between, No Menses for 6 Months, Heavy Menses, Light Menses, Normal Menses, Spotting Between Cycles, S/P Hysterectomy, Menopausal, Post Menopausal, Premenarche, Abnormal Vaginal Bleeding, Dysmenorrhea, Other - Musculoskeletal Musculoskeletal: absent: As Per HPI, Abnormal Gait, Arthralgias, Atrophy, Back Pain, Deformity, Joint Swelling, Limited Range of Motion, Loss of Height, Muscle Cramps, Muscle Weakness, Myalgias, Neck Pain, Numbness, Radiating Pain into Limb, Stiffness, Tingling, Other - Integumentary Integumentary: As Per HPI - Neurological Neurological: absent: As Per HPI, Abnormal Gait, Abnormal Hearing, Abnormal Movements, Abnormal Speech, Behavioral Changes, Burning Sensations, Confusion, Convulsions, Disequilibrium, Dizziness, Numbness, Focal Weakness, Frequent Falls, Headaches, Lack of Coordination, Loss of Vision, Memory Loss, Paresthesias, Radicular Pain, Restless Legs, Sensory Deficit, Syncope, Tingling, Tremor, Vertigo, Weakness, Other Visual Disturbances, Other - Psychiatric Psychiatric: absent: As Per HPI, Abnormal Sleep Pattern, Anhedonia, Anxiety, Auditory Hallucinations, Behavioral Changes, Change in Appetite, Change in Libido, Confusion, Depression, Difficulty Concentrating, Hallucinations, Homicidal Ideation, Hopelessness, Irritability, Memory Loss, Mood Swings, Panic Attacks, Paranoia, Suicidal Ideation, Visual Hallucinations, Tactile Hallucinations, Other - Endocrine Endocrine: absent: As Per HPI, Change in Body Appearance, Change in Libido, Cold Intolorance, Deepening of Voice, Excessive Sweating, Fatigue, Flushing, Heat Intolorance, Increase in Ring/Shoe/Hat Size, Palpitations, Polydipsia, Polyphagia, Polyuria, Other Past Patient History - Infectious Disease Hx of Infectious Diseases: None - Past Medical History & Family History Past Medical History?: Yes - Past Social History Smoking Status: Light Smoker < 10 Cigarettes Daily - CARDIAC Hx Hypertension: No (pt denies) - PULMONARY Hx Asthma: Yes Hx Bronchitis: Yes - NEUROLOGICAL Hx Neurological Disorder: No - HEENT Hx HEENT Problems: No - RENAL Hx Chronic Kidney Disease: No - ENDOCRINE/METABOLIC Hx Endocrine Disorders: Yes Hx Diabetes Mellitus Type 2: Yes (diet controlled, no meds as per patient) - HEMATOLOGICAL/ONCOLOGICAL Hx Blood Disorders: No - INTEGUMENTARY Hx Dermatological Problems: No - MUSCULOSKELETAL/RHEUMATOLOGICAL Hx Musculoskeletal Disorders: No Hx Falls: No - GASTROINTESTINAL Hx Gastritis: Yes - GENITOURINARY/GYNECOLOGICAL Hx Genitourinary Disorders: No - PSYCHIATRIC Hx Substance Use: No - SURGICAL HISTORY Hx Section: Yes (x3) - ANESTHESIA Hx Anesthesia: Yes Hx Anesthesia Reactions: No Hx Malignant Hyperthermia: No Meds Allergies/Adverse Reactions: Allergies Allergy/AdvReac Type Severity Reaction Status Date / Time strawberry Allergy hives Verified 04/09/18 09:47 - Medications Medications: Current Medications Docusate Sodium (Colace) 100 mg PO BID [facility] Last Admin: 04/10/18 10:00 Dose: Not Given Enoxaparin Sodium (Lovenox) 30 mg SC 1000,2200 [facility] Last Admin: 04/10/18 01:00 Dose: Not Given Sodium Chloride (Sodium Chloride 0.9%) 1,000 mls @ 100 mls/hr IV .Q10H [facility] Last Admin: 04/10/18 08:34 Dose: Not Given Dextrose/Sodium Chloride (Dextrose 5%/0.45% Ns 1000 Ml) 1,000 mls @ 60 mls/hr IV .[id number] [facility] Last Admin: 04/09/18 17:32 Dose: 60 mls/hr Vancomycin/Sodium Chloride (Vancomycin 1 Gm/Ns 200 Ml) 1 gm in 200 mls @ 133 mls/hr IVPB Q12H [facility]; Protocol Stop: 04/15/18 17:01 Last Admin: 04/10/18 16:21 Dose: Not Given Piperacillin Sod/Tazobactam (Sod 3.375 gm/ Sodium Chloride) 100 mls @ 200 mls/hr IVPB Q6H [facility]; Protocol Last Admin: 04/10/18 16:30 Dose: 200 mls/hr Ketorolac Tromethamine (Toradol) 30 mg IVP Q6 PRN PRN Reason: pain 8-10 Stop: 04/14/18 14:04 Last Admin: 04/10/18 16:26 Dose: 30 mg Oxycodone/Acetaminophen (Percocet 5/325 Mg Tab) 2 tab PO Q4H PRN PRN Reason: pain Stop: 04/12/18 14:04 Last Admin: 04/09/18 20:16 Dose: 2 tab Pantoprazole Sodium (Protonix Inj) 40 mg IVP DAILY [facility] Last Admin: 04/10/18 10:00 Dose: Not Given Physical Exam - Constitutional Appears: Non-toxic, Chronically Ill - Head Exam Head Exam: NORMOCEPHALIC - Eye Exam Eye Exam: absent: Scleral icterus - ENT Exam ENT Exam: Mucous Membranes Dry, Normal External Ear Exam - Neck Exam Neck exam: Negative for: Lymphadenopathy - Respiratory Exam Respiratory Exam: Decreased Breath Sounds - Cardiovascular Exam Cardiovascular Exam: REGULAR RHYTHM - GI/Abdominal Exam GI & Abdominal Exam: Diminished Bowel Sounds, Soft. absent: Tenderness - Rectal Exam Rectal Exam: Deferred - Exam Exam: NORMAL INSPECTION - Extremities Exam Extremities exam: Negative for: pedal edema - Back Exam Back exam: absent: CVA tenderness (L), CVA tenderness (R) - Neurological Exam Neurological exam: Alert, CN II-XII Intact, Oriented x3, Reflexes Normal - Psychiatric Exam Psychiatric exam: Depressed - Skin Skin Exam: Dry Additional comments: cellulitis right breast packing in place Results - Vital Signs Recent Vital Signs: Last Vital Signs Temp 97.5 F L 04/10/18 15:45 Pulse 56 L 04/10/18 15:45 Resp 12 04/10/18 15:45 BP 142/67 04/10/18 15:45 Pulse Ox 97 04/10/18 15:45 - Labs Result Diagrams: 04/10/18 07:06 04/10/18 07:06 Labs: Laboratory Results - last 24 hr 04/10/18 04/10/18 04/10/18 06:03 07:06 07:06 WBC 8.7 RBC 4.08 Hgb 12.9 Hct 37.8 MCV 92.7 MCH 31.6 H MCHC 34.1 RDW 13.1 Plt Count 276 MPV 8.8 Neut % (Auto) 70.5 Lymph % (Auto) 20.4 [place] % (Auto) 5.9 Eos % (Auto) 2.8 Baso % (Auto) 0.4 Neut # (Auto) 6.1 Lymph # (Auto) 1.8 [place] # (Auto) 0.5 Eos # (Auto) 0.2 Baso # (Auto) 0.0 Sodium 137 Potassium 3.7 Chloride 102 Carbon Dioxide 31 H Anion Gap 8 L BUN 14 Creatinine 0.6 L Est GFR ( Amer) > 60 Est GFR (Non-Af Amer) > 60 Random Glucose 152 H Calcium 8.6 Urine HCG, Qual Negative Assessment & Plan (1) Abscess of breast, right Status: Acute (2) Cellulitis of right breast Status: Acute - Assessment and Plan (Free Text) Assessment: cont iv rx await cultures wound care in progress
[2018-04-11] MEDS: Oxycodone/Acetaminophen 5/325 mg Tab PO PRN
[2018-04-11] MEDS: Piperacillin/Tazobact 3.375 GM in Sodium Chloride 100 ML IVPB SCH ×4 (04:24→22:49)
[2018-04-11] MEDS: Vancomycin 1 gm/NS 200 ml 1 GM/200 ML BAG IVPB SCH ×2 (04:24→17:40)
--- NOTE | 2018-04-11 07:00 | OP ---
PROCEDURE DATE: 04/10/2018 PREOPERATIVE DIAGNOSIS: Large open wound of right breast with large necrotic wound of the right breast. POSTOPERATIVE DIAGNOSIS: Large open wound of right breast with large necrotic wound of the right breast. PROCEDURE PERFORMED: Re-drainage of breast abscess with debridement and partial tissue flap closure. SURGEON: Jabari Barros MD TYPE OF ANESTHESIA: General. BLOOD LOSS: 20 mL. POSTOPERATIVE CONDITION: Stable. INDICATIONS FOR SURGERY: This is a 47-year-old female in a staged procedure, taken back to the OR with a large necrotic wound of her right breast for change of packing and further debridement. DESCRIPTION OF PROCEDURE: The patient was taken back to the operating room. IV sedation was administered. The right breast packing was removed, and the area was prepped and draped. The wound was again aggressively debrided. Any remaining collections which were drained and cultured. Bleeding was controlled using the Bovie, and larger chest wall bleeders were repaired. The wound was pulse irrigated with saline and Kantrex solution. Tissue flap closure was performed at the periphery, utilizing counter incisions. Central portion of wound was packed open with wet saline gauze. The patient tolerated the procedure well and returned to recovery room in stable condition. Jabari Barros MD
--- NOTE | 2018-04-11 08:10 | CP.PCM.CON ---
History of Present Illness - History of Present Illness History of Present Illness: CC: infection 47 y/o female with NIDDM (lost weight) and Asthma. Patient 1-2 weeks noted lumb and got red. He was given Augmentin anf sent to Surgeon. Pt was advise admission. Review of Systems - Review of Systems Systems not reviewed;Unavailable: Acuity of Condition - Constitutional Constitutional: Anorexia. absent: Chills, Headache - EENT Eyes: absent: Itchy Eyes, Sees Flashes, Loss of Vision Nose/Mouth/Throat: absent: Nasal Discharge, Post Nasal Drip, Dysphagia, Hoarsness - Breasts Breasts: Pain, Skin Changes, Swelling - Cardiovascular Cardiovascular: absent: Chest Pain, Diaphoresis, Leg Edema, Leg Ulcers, Palpitations, Pedal Edema, Syncope - Respiratory Respiratory: Cough, Dyspnea, Dyspnea on Exertion, Wheezing. absent: Hemoptysis, Chest Congestion, Excessive Mucous Production - Gastrointestinal Gastrointestinal: absent: Abdominal Pain, Bloating, Dyspepsia, Loose Stools, Melena, Nausea - Genitourinary Genitourinary: absent: Difficulty Urinating, Dysuria, Hematuria, Freq UTI - Musculoskeletal Musculoskeletal: absent: Abnormal Gait, Atrophy, Back Pain, Loss of Height, Myalgias - Neurological Neurological: absent: Abnormal Gait, Dizziness, Headaches, Radicular Pain, Re stless Legs Past Patient History - Infectious Disease Hx of Infectious Diseases: None - Past Medical History & Family History Past Medical History?: Yes - Past Social History Smoking Status: Light Smoker < 10 Cigarettes Daily - CARDIAC Hx Hypertension: No (pt denies) - PULMONARY Hx Asthma: Yes Hx Bronchitis: Yes - NEUROLOGICAL Hx Neurological Disorder: No - HEENT Hx HEENT Problems: No - RENAL Hx Chronic Kidney Disease: No - ENDOCRINE/METABOLIC Hx Endocrine Disorders: Yes Hx Diabetes Mellitus Type 2: Yes (diet controlled, no meds as per patient) - HEMATOLOGICAL/ONCOLOGICAL Hx Blood Disorders: No - INTEGUMENTARY Hx Dermatological Problems: No - MUSCULOSKELETAL/RHEUMATOLOGICAL Hx Musculoskeletal Disorders: No Hx Falls: No - GASTROINTESTINAL Hx Gastritis: Yes - GENITOURINARY/GYNECOLOGICAL Hx Genitourinary Disorders: No - PSYCHIATRIC Hx Substance Use: No - SURGICAL HISTORY Hx Section: Yes (x3) - ANESTHESIA Hx Anesthesia: Yes Hx Anesthesia Reactions: No Hx Malignant Hyperthermia: No Meds Allergies/Adverse Reactions: Allergies Allergy/AdvReac Type Severity Reaction Status Date / Time strawberry Allergy hives Verified 04/09/18 09:47 - Medications Medications: Current Medications Albuterol Sulfate (Albuterol 0.083% Inhal Keyana (2.5 Mg/3 Ml) Ud) 2.5 mg INH QID [facility] Docusate Sodium (Colace) 100 mg PO BID [facility] Last Admin: 04/10/18 17:35 Dose: Not Given Enoxaparin Sodium (Lovenox) 30 mg SC 1000,2200 [facility] Last Admin: 04/10/18 21:41 Dose: 30 mg Sodium Chloride (Sodium Chloride 0.9%) 1,000 mls @ 100 mls/hr IV .Q10H [facility] Last Admin: 04/10/18 21:34 Dose: 100 mls/hr Dextrose/Sodium Chloride (Dextrose 5%/0.45% Ns 1000 Ml) 1,000 mls @ 60 mls/hr IV .[id number] [facility] Last Admin: 04/09/18 17:32 Dose: 60 mls/hr Vancomycin/Sodium Chloride (Vancomycin 1 Gm/Ns 200 Ml) 1 gm in 200 mls @ 133 mls/hr IVPB Q12H [facility]; Protocol Stop: 04/15/18 17:01 Last Admin: 04/11/18 04:24 Dose: 133 mls/hr Piperacillin Sod/Tazobactam (Sod 3.375 gm/ Sodium Chloride) 100 mls @ 200 mls/hr IVPB Q6H [facility]; Protocol Last Admin: 04/11/18 04:24 Dose: 200 mls/hr Ketorolac Tromethamine (Toradol) 30 mg IVP Q6 PRN PRN Reason: pain 8-10 Stop: 04/14/18 14:04 Last Admin: 04/10/18 16:26 Dose: 30 mg Montelukast Sodium (Singulair) 10 mg PO [facility] Oxycodone/Acetaminophen (Percocet 5/325 Mg Tab) 2 tab PO Q4H PRN PRN Reason: pain Stop: 04/12/18 14:04 Last Admin: 04/11/18 00:00 Dose: 2 tab Pantoprazole Sodium (Protonix Inj) 40 mg IVP DAILY [facility] Last Admin: 04/10/18 10:00 Dose: Not Given Physical Exam - Constitutional Appears: No Acute Distress - Eye Exam Eye Exam: Normal appearance - ENT Exam ENT Exam: Mucous Membranes Moist - Neck Exam Neck exam: Positive for: Full Rom. Negative for: Lymphadenopathy, Normal Inspection - Respiratory Exam Respiratory Exam: Decreased Breath Sounds, Wheezes. absent: Rales, Rhonchi - Cardiovascular Exam Cardiovascular Exam: REGULAR RHYTHM, +S1, +S2. absent: Gallop, JVD - GI/Abdominal Exam GI & Abdominal Exam: Soft. absent: Guarding, Tenderness - Extremities Exam Extremities exam: Positive for: full ROM, normal capillary refill. Negative for: calf tenderness, joint swelling, pedal edema Results - Vital Signs Recent Vital Signs: Last Vital Signs Temp 97.8 F 04/11/18 07:00 Pulse 60 04/11/18 07:00 Resp 20 04/11/18 07:00 BP 113/76 04/11/18 07:00 Pulse Ox 97 04/11/18 07:00 - Labs Result Diagrams: 04/10/18 07:06 04/10/18 07:06 - EKG Data EKG Interpreted by: Myself EKG shows normal: Sinus rhythm Rate: Normal - EKG Data When Compared to Previous EKG: No Significant Change Assessment & Plan - Assessment and Plan (Free Text) Assessment: Asthma - mild exac; NIDDM - controlled after wt loss Abscess R brease x s/p I & D cont Antibx Add singulair and albuterol for now FS w/ low dose coverage
[2018-04-11] MEDS: Enoxaparin 30 mg Syringe SC SCH ×2 (10:00→23:24)
[2018-04-11] MEDS: Albuterol 0.083% Inhal Sol (2.5 mg/3 mL) UD INH SCH ×4 (10:34→19:40)
[2018-04-11] MEDS: Sodium Chloride 0.9% 1,000 ML IV SCH ×2 (13:51→23:00)
--- NOTE | 2018-04-11 16:01 | CP.PCM.PN ---
Subjective - Date & Time of Evaluation Date of Evaluation: 04/11/18 Time of Evaluation: 09:00 - Subjective Subjective: cultures neg thus far afeb await path report Objective - Vital Signs/Intake and Output Vital Signs (last 24 hours): Temp Pulse Resp BP Pulse Ox 97.8 F 60 20 113/76 97 04/11/18 07:00 04/11/18 07:00 04/11/18 07:00 04/11/18 07:00 04/11/18 07:00 - Medications Medications: Current Medications Albuterol Sulfate (Albuterol 0.083% Inhal Keyana (2.5 Mg/3 Ml) Ud) 2.5 mg INH RQID [facility] Last Admin: 04/11/18 11:00 Dose: 2.5 mg Docusate Sodium (Colace) 100 mg PO BID [facility] Last Admin: 04/11/18 11:39 Dose: 100 mg Enoxaparin Sodium (Lovenox) 30 mg SC 1000,2200 [facility] Last Admin: 04/11/18 10:00 Dose: Not Given Sodium Chloride (Sodium Chloride 0.9%) 1,000 mls @ 100 mls/hr IV .Q10H [facility] Last Admin: 04/11/18 13:51 Dose: Not Given Dextrose/Sodium Chloride (Dextrose 5%/0.45% Ns 1000 Ml) 1,000 mls @ 60 mls/hr IV .[id number] [facility] Last Admin: 04/09/18 17:32 Dose: 60 mls/hr Vancomycin/Sodium Chloride (Vancomycin 1 Gm/Ns 200 Ml) 1 gm in 200 mls @ 133 mls/hr IVPB Q12H [facility]; Protocol Stop: 04/15/18 17:01 Last Admin: 04/11/18 04:24 Dose: 133 mls/hr Piperacillin Sod/Tazobactam (Sod 3.375 gm/ Sodium Chloride) 100 mls @ 200 mls/hr IVPB Q6H [facility]; Protocol Last Admin: 04/11/18 11:00 Dose: 200 mls/hr Montelukast Sodium (Singulair) 10 mg PO HS [facility] Oxycodone/Acetaminophen (Percocet 5/325 Mg Tab) 2 tab PO Q4H PRN PRN Reason: pain Stop: 04/12/18 14:04 Last Admin: 04/11/18 00:00 Dose: 2 tab Pantoprazole Sodium (Protonix Inj) 40 mg IVP DAILY [facility] Last Admin: 04/11/18 11:39 Dose: 40 mg - Labs Labs: 04/10/18 07:06 04/10/18 07:06 PT 12.9 SECONDS (9.7-12.2) H 04/09/18 11:16 INR 1.2 04/09/18 11:16 APTT 30 SECONDS (21-34) 04/09/18 11:16 - Constitutional Appears: Well - Head Exam Head Exam: ATRAUMATIC, NORMAL INSPECTION, NORMOCEPHALIC - Eye Exam Eye Exam: EOMI, Normal appearance, PERRL Pupil Exam: NORMAL ACCOMODATION, PERRL - ENT Exam ENT Exam: Mucous Membranes Moist, Normal Exam - Neck Exam Neck Exam: Full ROM, Normal Inspection. absent: Lymphadenopathy - Respiratory Exam Respiratory Exam: Clear to Ausculation Bilateral, NORMAL BREATHING PATTERN - Cardiovascular Exam Cardiovascular Exam: REGULAR RHYTHM, +S1, +S2. absent: Murmur - GI/Abdominal Exam GI & Abdominal Exam: Soft, Normal Bowel Sounds. absent: Tenderness - Rectal Exam Rectal Exam: Deferred - Exam Exam: NORMAL INSPECTION - Extremities Exam Extremities Exam: Full ROM, Normal Capillary Refill, Normal Inspection. absent: Joint Swelling, Pedal Edema - Back Exam Back Exam: NORMAL INSPECTION - Neurological Exam Neurological Exam: Alert, Awake, CN II-XII Intact, Normal Gait, Oriented x3 - Psychiatric Exam Psychiatric exam: Normal Affect, Normal Mood - Skin Skin Exam: Dry, Normal Color, Warm. absent: Intact Additional comments: wound packed right breast Assessment and Plan (1) Abscess of breast, right Status: Acute (2) Cellulitis of right breast Status: Acute - Assessment and Plan (Free Text) Assessment: cont IV rx for now
[2018-04-11] MEDS: Dextrose 5%/0.45% NS 1,000 ML IV SCH (16:46)
[2018-04-12] MEDS: Piperacillin/Tazobact 3.375 GM in Sodium Chloride 100 ML IVPB SCH ×4 (03:46→22:59)
[2018-04-12 07:02] LABS: ALB/GLOB RATIO 1.2 (1.0-2.1); ALBUMIN 3.4 g/dL (3.5-5.0); ALT/SGPT 19 U/L (9-52); AST/SGOT 24 U/L (14-36); BLOOD UREA NITROGEN 15 mg/dL (7-17); CALCIUM 8.3 mg/dl (8.6-10.4); GFR NON-AFRICAN AMERICAN > 60
[2018-04-12] MEDS: Albuterol 0.083% Inhal Sol (2.5 mg/3 mL) UD INH SCH ×4 (07:42→20:06)
[2018-04-12] MEDS: Enoxaparin 30 mg Syringe SC SCH ×2 (11:01→22:42)
[2018-04-12] MEDS: Dextrose 5%/0.45% NS 1,000 ML IV SCH (11:09)
--- NOTE | 2018-04-12 16:15 | CP.PCM.CON ---
History of Present Illness - History of Present Illness History of Present Illness: Feels better. No fever, s/p I&D breat for breast abscess Review of Systems - Review of Systems All systems: reviewed and no additional remarkable complaints except (breast pains, fever, weakness) Past Patient History - Infectious Disease Hx of Infectious Diseases: None - Past Medical History & Family History Past Medical History?: Yes - Past Social History Smoking Status: Light Smoker < 10 Cigarettes Daily - CARDIAC Hx Hypertension: No (pt denies) - PULMONARY Hx Asthma: Yes Hx Bronchitis: Yes - NEUROLOGICAL Hx Neurological Disorder: No - HEENT Hx HEENT Problems: No - RENAL Hx Chronic Kidney Disease: No - ENDOCRINE/METABOLIC Hx Endocrine Disorders: Yes Hx Diabetes Mellitus Type 2: Yes (diet controlled, no meds as per patient) - HEMATOLOGICAL/ONCOLOGICAL Hx Blood Disorders: No - INTEGUMENTARY Hx Dermatological Problems: No - MUSCULOSKELETAL/RHEUMATOLOGICAL Hx Musculoskeletal Disorders: No Hx Falls: No - GASTROINTESTINAL Hx Gastritis: Yes - GENITOURINARY/GYNECOLOGICAL Hx Genitourinary Disorders: No - PSYCHIATRIC Hx Substance Use: No - SURGICAL HISTORY Hx Section: Yes (x3) - ANESTHESIA Hx Anesthesia: Yes Hx Anesthesia Reactions: No Hx Malignant Hyperthermia: No Meds Allergies/Adverse Reactions: Allergies Allergy/AdvReac Type Severity Reaction Status Date / Time strawberry Allergy hives Verified 04/09/18 09:47 - Medications Medications: Current Medications Albuterol Sulfate (Albuterol 0.083% Inhal Keyana (2.5 Mg/3 Ml) Ud) 2.5 mg INH RQID [facility] Last Admin: 04/12/18 11:50 Dose: 2.5 mg Docusate Sodium (Colace) 100 mg PO BID [facility] Last Admin: 04/12/18 11:01 Dose: Not Given Enoxaparin Sodium (Lovenox) 30 mg SC 1000,2200 [facility] Last Admin: 04/12/18 11:01 Dose: Not Given Piperacillin Sod/Tazobactam (Sod 3.375 gm/ Sodium Chloride) 100 mls @ 200 mls/hr IVPB Q6H [facility]; Protocol Last Admin: 04/12/18 11:09 Dose: 200 mls/hr Vancomycin/Sodium Chloride (Vancomycin 1 Gm/Ns 200 Ml) 1 gm in 200 mls @ 133.333 mls/hr IVPB Q24H [facility]; Protocol Stop: 04/16/18 17:01 Last Admin: 04/11/18 17:40 Dose: 133.333 mls/hr Montelukast Sodium (Singulair) 10 mg PO HS [facility] Last Admin: 04/11/18 22:47 Dose: Not Given Physical Exam - Constitutional Appears: No Acute Distress - Head Exam Head Exam: NORMAL INSPECTION - Eye Exam Eye Exam: Normal appearance - ENT Exam ENT Exam: Normal Exam - Neck Exam Neck exam: Positive for: Normal Inspection - Respiratory Exam Respiratory Exam: NORMAL BREATHING PATTERN - Cardiovascular Exam Cardiovascular Exam: REGULAR RHYTHM - GI/Abdominal Exam GI & Abdominal Exam: Soft (CHEST: breast with dressing) - Rectal Exam Rectal Exam: Deferred - Extremities Exam Extremities exam: Positive for: normal inspection - Psychiatric Exam Psychiatric exam: Anxious Results - Vital Signs Recent Vital Signs: Last Vital Signs Temp 98.2 F 04/12/18 07:55 Pulse 67 04/12/18 07:55 Resp 20 04/12/18 07:55 BP 131/77 04/12/18 07:55 Pulse Ox 94 L 04/12/18 07:55 - Labs Result Diagrams: 04/10/18 07:06 04/12/18 06:37 Labs: Laboratory Results - last 24 hr 04/12/18 04/12/18 04/12/18 06:37 06:37 07:15 Sodium 135 Potassium 3.8 Chloride 102 Carbon Dioxide 30 Anion Gap 7 L BUN 15 Creatinine 0.7 Est GFR ( Amer) > 60 Est GFR (Non-Af Amer) > 60 Random Glucose 143 H Calcium 8.3 L Total Bilirubin 0.3 AST 24 ALT 19 Alkaline Phosphatase 61 Total Protein 6.2 L Albumin 3.4 L Globulin 2.8 Albumin/Globulin Ratio 1.2 Urine HCG, Qual Negative Vancomycin Trough 8.0 Assessment & Plan (1) Abscess of breast, right Status: Acute (2) Asthma Status: Chronic (3) Diabetes Status: Chronic (4) Obesity Status: Chronic - Assessment and Plan (Free Text) Assessment: A/P: continue wound care. Continue IV antibiotics - Date & Time Date: 04/12/18 Time: 16:17
[2018-04-12] MEDS ORDERED: HYDROmorphone 0.5 mg/0.5 ml ISec IVP PRN ×2 (16:28→17:22)
[2018-04-12] MEDS ORDERED: Midazolam 2 MG/2 ML VIAL ONE (16:28)
[2018-04-12] MEDS ORDERED: Propofol 10 mg/ml Inj (20 ML) ONE (16:28)
[2018-04-12] MEDS: Vancomycin 1 gm/NS 200 ml 1 GM/200 ML BAG IVPB SCH ×2 (17:00→17:12)
[2018-04-12] MEDS: Lactated Ringer's 1,000 ML IV SCH (17:30)
--- NOTE | 2018-04-12 19:13 | CP.PCM.PN ---
Subjective - Date & Time of Evaluation Date of Evaluation: 04/12/18 Time of Evaluation: 08:00 - Subjective Subjective: cultures + corynebacterium Objective - Vital Signs/Intake and Output Vital Signs (last 24 hours): Temp Pulse Resp BP Pulse Ox 97.4 F L 61 12 126/61 95 04/12/18 18:00 04/12/18 18:00 04/12/18 18:00 04/12/18 18:00 04/12/18 18:00 Intake and Output: 04/12/18 04/13/18 18:59 06:59 Intake Total 630 Balance 630 - Medications Medications: Current Medications Albuterol Sulfate (Albuterol 0.083% Inhal Keyana (2.5 Mg/3 Ml) Ud) 2.5 mg INH RQID [facility] Last Admin: 04/12/18 11:50 Dose: 2.5 mg Docusate Sodium (Colace) 100 mg PO BID [facility] Last Admin: 04/12/18 11:01 Dose: Not Given Enoxaparin Sodium (Lovenox) 30 mg SC 1000,2200 [facility] Last Admin: 04/12/18 11:01 Dose: Not Given Hydromorphone HCl (Dilaudid) 0.5 mg IVP Q10M PRN PRN Reason: Pain, moderate (4-7) Stop: 04/12/18 19:23 Piperacillin Sod/Tazobactam (Sod 3.375 gm/ Sodium Chloride) 100 mls @ 200 mls/hr IVPB Q6H [facility]; Protocol Last Admin: 04/12/18 16:40 Dose: 100 mls Vancomycin/Sodium Chloride (Vancomycin 1 Gm/Ns 200 Ml) 1 gm in 200 mls @ 133.333 mls/hr IVPB Q24H [facility]; Protocol Stop: 04/16/18 17:01 Last Admin: 04/12/18 17:12 Dose: 75 mls Lactated Ringer's (Lactated Ringer's) 1,000 mls @ 100 mls/hr IV .Q10H [facility] Montelukast Sodium (Singulair) 10 mg PO HS [facility] Last Admin: 04/11/18 22:47 Dose: Not Given - Labs Labs: 04/10/18 07:06 04/12/18 06:37 PT 12.9 SECONDS (9.7-12.2) H 04/09/18 11:16 INR 1.2 04/09/18 11:16 APTT 30 SECONDS (21-34) 04/09/18 11:16 - Constitutional Appears: Well - Head Exam Head Exam: ATRAUMATIC, NORMAL INSPECTION, NORMOCEPHALIC - Eye Exam Eye Exam: EOMI, Normal appearance, PERRL Pupil Exam: NORMAL ACCOMODATION, PERRL - ENT Exam ENT Exam: Mucous Membranes Moist, Normal Exam - Neck Exam Neck Exam: Full ROM, Normal Inspection. absent: Lymphadenopathy - Respiratory Exam Respiratory Exam: Clear to Ausculation Bilateral, NORMAL BREATHING PATTERN - Cardiovascular Exam Cardiovascular Exam: REGULAR RHYTHM, +S1, +S2. absent: Murmur - GI/Abdominal Exam GI & Abdominal Exam: Soft, Normal Bowel Sounds. absent: Tenderness - Rectal Exam Rectal Exam: Deferred - Exam Exam: NORMAL INSPECTION - Extremities Exam Extremities Exam: Full ROM, Normal Capillary Refill, Normal Inspection. absent: Joint Swelling, Pedal Edema - Back Exam Back Exam: NORMAL INSPECTION - Neurological Exam Neurological Exam: Alert, Awake, CN II-XII Intact, Normal Gait, Oriented x3 - Psychiatric Exam Psychiatric exam: Normal Affect, Normal Mood - Skin Skin Exam: Dry, Intact, Normal Color, Warm Assessment and Plan (1) Abscess of breast, right Status: Acute (2) Cellulitis of right breast Status: Acute - Assessment and Plan (Free Text) Assessment: for or in am cont antibiotics Plan: PO Clinda 300 tisd x 7 days on discharge
[2018-04-13] MEDS: Piperacillin/Tazobact 3.375 GM in Sodium Chloride 100 ML IVPB SCH ×3 (04:20→17:40)
[2018-04-13] MEDS: Lactated Ringer's 1,000 ML IV SCH ×3 (06:00→23:30)
--- NOTE | 2018-04-13 06:08 | OP ---
PROCEDURE DATE: 04/12/2018 PREOPERATIVE DIAGNOSIS: Extensive soft tissue infection of the right breast. POSTOPERATIVE DIAGNOSIS: Extensive soft tissue infection of the right breast. PROCEDURE PERFORMED: Debridement and partial closure of the right breast wound with redrainage of abscess. SURGEON: Jabari Barros MD ANESTHESIA: General. ESTIMATED BLOOD LOSS: 30 mL. POSTOPERATIVE CONDITION: Stable. INDICATIONS FOR SURGERY: Stage procedure, the patient had a massive necrotizing soft tissue infection in the breast plus lot of breast tissue. She had undergone two debridements so far. This is the third, and we will probably do some closure of the wound today depending on how they have healed. DESCRIPTION OF PROCEDURE: The patient was taken to the operating room. General anesthesia was administered. The right breast was prepped and draped. The wounds were aggressively debrided and pulse irrigated. Once again, the bleeding was controlled using the Bovie and ____ chest wall vessels were repaired. Any remaining collections were drained and cultured. Tissue flap closures were performed and approximately half of the wound was closed in this fashion. The rest of the wound was packed with the wet saline gauze and dressed sterilely. The patient tolerated the procedure well and returned to the recovery room in stable condition. Jabari Barros MD
[2018-04-13] MEDS: Albuterol 0.083% Inhal Sol (2.5 mg/3 mL) UD INH SCH ×4 (08:53→20:22)
[2018-04-13] MEDS: Enoxaparin 30 mg Syringe SC SCH ×2 (10:45→21:03)
[2018-04-13] MEDS ORDERED: ceFAZolin 1 gm in NS 2 GM/200 ML BAG IVPB ONE (14:49)
[2018-04-13] MEDS ORDERED: Midazolam 2 MG/2 ML VIAL ONE (14:49)
[2018-04-13] MEDS ORDERED: Propofol 10 mg/ml Inj (20 ML) ONE (14:50)
[2018-04-13] MEDS ORDERED: Dexamethasone 4 mg/1 ml IVP PRN (14:59)
[2018-04-13] MEDS ORDERED: HYDROmorphone 0.5 mg/0.5 ml ISec IVP PRN (14:59)
[2018-04-13] MEDS ORDERED: Bacitracin Ointment 30 GM TUBE ONE (15:28)
--- NOTE | 2018-04-13 18:09 | CP.PCM.PN ---
Subjective - Date & Time of Evaluation Date of Evaluation: 04/13/18 Time of Evaluation: 09:00 - Subjective Subjective: improving s/p OR Objective - Vital Signs/Intake and Output Vital Signs (last 24 hours): Temp Pulse Resp BP Pulse Ox 97.1 F L 87 20 128/67 95 04/13/18 16:15 04/13/18 16:15 04/13/18 16:15 04/13/18 16:15 04/13/18 16:15 Intake and Output: 04/13/18 04/13/18 06:59 18:59 Intake Total 300 Balance 300 - Medications Medications: Current Medications Albuterol Sulfate (Albuterol 0.083% Inhal Keyana (2.5 Mg/3 Ml) Ud) 2.5 mg INH RQID [facility] Last Admin: 04/13/18 11:58 Dose: Not Given Docusate Sodium (Colace) 100 mg PO BID [facility] Last Admin: 04/13/18 10:45 Dose: Not Given Enoxaparin Sodium (Lovenox) 30 mg SC 1000,2200 [facility] Last Admin: 04/13/18 10:45 Dose: Not Given Vancomycin/Sodium Chloride (Vancomycin 1 Gm/Ns 200 Ml) 1 gm in 200 mls @ 133.333 mls/hr IVPB Q24H [facility]; Protocol Stop: 04/16/18 17:01 Last Admin: 04/12/18 17:12 Dose: 75 mls Lactated Ringer's (Lactated Ringer's) 1,000 mls @ 100 mls/hr IV .Q10H [facility] Last Admin: 04/13/18 17:50 Dose: 100 mls/hr Montelukast Sodium (Singulair) 10 mg PO HS [facility] Last Admin: 04/12/18 22:59 Dose: 10 mg - Labs Labs: 04/10/18 07:06 04/12/18 06:37 PT 12.9 SECONDS (9.7-12.2) H 04/09/18 11:16 INR 1.2 04/09/18 11:16 APTT 30 SECONDS (21-34) 04/09/18 11:16 - Constitutional Appears: Non-toxic, Chronically Ill - Head Exam Head Exam: NORMOCEPHALIC - Eye Exam Eye Exam: absent: Scleral icterus - ENT Exam ENT Exam: Mucous Membranes Dry - Neck Exam Neck Exam: absent: Lymphadenopathy - Respiratory Exam Respiratory Exam: Decreased Breath Sounds - Cardiovascular Exam Cardiovascular Exam: REGULAR RHYTHM - GI/Abdominal Exam GI & Abdominal Exam: Distended, Soft - Rectal Exam Rectal Exam: Deferred - Exam Exam: NORMAL INSPECTION - Extremities Exam Extremities Exam: absent: Pedal Edema - Back Exam Back Exam: absent: CVA tenderness (L), CVA tenderness (R) - Neurological Exam Neurological Exam: Alert, Awake, CN II-XII Intact, Oriented x3 Neuro motor strength exam: Left Upper Extremity: 5, Right Upper Extremity: 5, Left Lower Extremity: 5, Right Lower Extremity: 5 - Psychiatric Exam Psychiatric exam: Normal Mood - Skin Skin Exam: Dry Assessment and Plan (1) Abscess of breast, right Status: Acute (2) Cellulitis of right breast Status: Acute - Assessment and Plan (Free Text) Assessment: d/c home on oral rx out pt follow upp with PMD may need breast bx if not done as well as mammogram
[2018-04-13] MEDS: Vancomycin 1 gm/NS 200 ml 1 GM/200 ML BAG IVPB SCH (19:07)
[2018-04-13] MEDS: Oxycodone/Acetaminophen 5/325 mg Tab PO PRN (21:02)
--- NOTE | 2018-04-14 00:03 | OP ---
PROCEDURE DATE: 04/13/2018 PREOPERATIVE DIAGNOSIS: Necrotizing soft tissue infection of the breast, status post drainage and debridement of the abscess with tissue loss and partial closure yesterday. POSTOPERATIVE DIAGNOSIS: Necrotizing soft tissue infection of the breast, status post drainage and debridement of the abscess with tissue loss and partial closure yesterday. PROCEDURE: Staged return to the operating room debridement and pulse irrigation of the wound and tissue flap closure. SURGEON: Jabari Barros MD ANESTHESIA: General. ESTIMATED BLOOD LOSS: 30 mL. POSTOPERATIVE CONDITION: Stable. INDICATION FOR SURGERY: This is a 47-year-old female, taken for a staged procedure where she had a necrotizing soft tissue infection of the breast with gangrene of the skin, underwent multiple debridements. Today she is taken back for final debridement and closure of the wound. DESCRIPTION OF PROCEDURE: The patient was taken to the operating room. General anesthesia was administered. The right breast was prepped and draped. The wound was again aggressively debrided and pulse irrigated with saline and Kantrex solution. Bleeding was controlled using the Bovie. Larger blood vessels were repaired. The wound was irrigated with saline. Tissue flaps were raised. Counter incisions were made and tissue flap closures were performed in the upper outer quadrant and the inner lower quadrant of the breast. This was done using 2-0 Monocryl. Small area, which was left open, was packed with saline gauze. The remainder of the breast was dressed sterilely with bacitracin. The patient tolerated the procedure well and was returned to the recovery room in stable condition. Jabari Barros MD
[2018-04-14] MEDS: Oxycodone/Acetaminophen 5/325 mg Tab PO PRN (04:00)
[2018-04-14 08:25] VITALS: BP 120/70; PULSE 63; RESP 18; TEMP 98.1; O2SAT 96
[2018-04-14] MEDS: Enoxaparin 30 mg Syringe SC SCH (09:15)
--- NOTE | 2018-04-14 11:54 | CARD ---
APPROVED REPORT Date of service: 04/09/2018 EKG Measurement Heart [id number] <Conclusion> Normal sinus rhythm Left axis deviation Abnormal ECG
== END 2018-04-14 10:59 | disposition home or self-care (01) | DRG 577 ==
LOC: C.ER 09:36 → C.9E 12:15 → C.3T 13:17 → C.6T 15:51
PROVIDERS: ADMIT Surgery; ATTEND Surgery
PROC: 0H9T0ZX Drainage of Right Breast, Open Approach, Diagnostic (ICD-10-PCS; 2018-04-09)
PROC: 0HBT0ZZ Excision of Right Breast, Open Approach (ICD-10-PCS; 2018-04-09)
PROC: 0H9T0ZX Drainage of Right Breast, Open Approach, Diagnostic (ICD-10-PCS; 2018-04-10)
PROC: [UNRECOGNIZED PROCEDURE] (principal; 2018-04-10 13:30)
PROC: [UNRECOGNIZED PROCEDURE] (2018-04-12)
PROC: 0H9T0ZX Drainage of Right Breast, Open Approach, Diagnostic (ICD-10-PCS; 2018-04-12)
PROC: [UNRECOGNIZED PROCEDURE] (2018-04-13)
DX: N61.1 Abscess of the breast and nipple (principal); E11.52 Type 2 diabetes mellitus with diabetic peripheral angiopathy with gangrene; J45.901 Unspecified asthma with (acute) exacerbation; E66.9 Obesity, unspecified; F17.210 Nicotine dependence, cigarettes, uncomplicated; I10 Essential (primary) hypertension

== ENCOUNTER 2018-07-02 08:03 | Emergency (ER) | payer MEDICARE ==
[2018-07-02 08:04] VITALS: BMI 46.0
[2018-07-02 08:18] VITALS: BP 142/91; PULSE 66; RESP 18; TEMP 99.6; O2SAT 98
--- NOTE | 2018-07-02 08:50 | C.PDOC ---
History Of Present Illness 47 y/o female with dm and htn c/o right breast irritation x 2 days. pt was admitted in Mar 2018 for right breast cellulitis and abscess. denies fever and chills. pt has appt with surgeon this Monday. Time Seen by Provider: 07/02/18 08:22 Chief Complaint (Nursing): Breast Problem History Per: Patient History/Exam Limitations: no limitations Onset/Duration Of Symptoms: Days (2) Current Symptoms Are (Timing): Still Present Severity: Mild Past Medical History Reviewed: Historical Data, Nursing Documentation, Vital Signs Vital Signs: Last Vital Signs Temp 99.6 F 07/02/18 08:12 Pulse 66 07/02/18 08:12 Resp 18 07/02/18 08:12 BP 142/91 H 07/02/18 08:12 Pulse Ox 98 07/02/18 08:12 Primary Care Provider: Hira Hackett - Medical History PMH: Asthma, Bronchitis, Diabetes, Gastritis Denies: Chronic Kidney Disease Comment Only: HTN (pt denies) Surgical History: Endoscopy, Other Surgeries: I and D right breast abscess - [facility] Procedures DRAINAGE OF RIGHT BREAST, OPEN APPROACH, DIAGNOSTIC (04/09/18) EXCISION OF RIGHT BREAST, OPEN APPROACH (04/09/18) REPLACEMENT OF RIGHT BREAST WITH AUTOL SUB, GOOD HUMOR VENDOR APPROACH (04/09/18) Family History: States: Unknown Family Hx - Social History Hx Tobacco Use: Yes (heavy smoker) Hx Alcohol Use: No Hx Substance Use: No - Immunization History Hx Tetanus Toxoid Vaccination: No Hx Influenza Vaccination: Yes Hx Pneumococcal Vaccination: Yes Review Of Systems Constitutional: Negative for: Fever, Chills Cardiovascular: Negative for: Chest Pain Skin: Positive for: Other (healing lesion right breast). Negative for: Rash Neurological: Negative for: Weakness, Numbness Physical Exam - Physical Exam Appears: Non-toxic, No Acute Distress Skin: Warm, Dry, Other (several scars on right breast; round 4 mm area to right of nipple still healing with scant drainage,m no erythema or warmth noted. ) ED Course And Treatment O2 Sat by Pulse Oximetry: 98 Medical Decision Making Medical Decision Making: pt with right breast irritation, had recent surgical drainage of breast abscess. no signs of infection at this time; pt has f/u appt this Monday with surgeon. recommended to patient to f/u with powertrain design engineer willian for annual mammogram. pt understands and agrees to plan. Disposition Counseled Patient/Family Regarding: Diagnosis, Need For Followup - Disposition Referrals: Hira Hackett MD [Staff Provider] - Jabari Barros MD [Staff Provider] - Disposition: HOME/ ROUTINE Disposition Time: 09:01 Condition: GOOD Additional Instructions: Follow up with Dr Barros and recommend annual gynecology exam and mammogram. Forms: [facility] (Greek), General Discharge Instructions - Clinical Impression Clinical Impression: Pain of breast
== END 2018-07-02 09:05 | disposition home or self-care (01) ==
LOC: C.ER 08:03
DX: N64.4 Mastodynia (principal); I10 Essential (primary) hypertension; F17.210 Nicotine dependence, cigarettes, uncomplicated